=== PATIENT | male | born 1965 | race Caucasian/White ===

== ENCOUNTER 2018-01-09 08:20 | Emergency (ER) | payer OTHER, SELFPAY ==
[2018-01-09] VITALS (10 sets, daily range): BP systolic 82–91; BP diastolic 55–69; PULSE 56–64; RESP 11–29; O2SAT 98–99; BMI 27.3
--- NOTE | 2018-01-09 | DI.RAD.S_ITS ---
PROCEDURE: XR CHEST 1V INDICATIONS: CONFUSION, POSSIBLE STROKE TECHNIQUE: One view of the chest was acquired. COMPARISON: None. FINDINGS: Surgical changes and devices: None. Lungs and pleura: No pleural effusions or pneumothorax. Lungs are difficult to assess due to reduced inspiration, and light film technique. Mediastinum: Mediastinal contours appear normal. Heart size is normal. Bones and chest wall: No suspicious bony lesions. Overlying soft tissues appear unremarkable. IMPRESSION: Light film technique, no pneumonia or aspiration seen. The inspiratory volume is reduced. There may be a slight degree of pulmonary edema superimposed. Dictated by: Robert Day M.D. on 01/09/2018 at 8:43 Approved by: Robert Day M.D. on 01/09/2018 at 8:46
--- NOTE | 2018-01-09 08:23 | DI.CT.S_ITS ---
PROCEDURE: CT HEAD/BRAIN WO CON INDICATIONS: code stroke confusion TECHNIQUE: Noncontrast 4.5 mm thick angled axial sections acquired from the foramen magnum to the vertex, with coronal and sagittal reformats. For radiation dose reduction, the following was used: automated exposure control, adjustment of mA and/or kV according to patient size. COMPARISON: None. FINDINGS: Image quality: Excellent. CSF spaces: Subarachnoid hemorrhage is present in the suprasellar cistern, interpeduncular cistern, ambient cistern and prepontine cistern, sylvian fissures, and the interhemispheric fissure, suspicious for ruptured aneurysm. Ventricles are normal in size and shape. Brain: Small amount of subarachnoid blood within the frontal sulci. No midline shift. No intracranial masses or hemorrhage. Fernández-white matter interface is normal. Skull and face: Calvarium and visualized facial bones are intact, without suspicious lesions. Sinuses: Visualized sinuses and mastoids are clear. IMPRESSION: There is considerable amount of subarachnoid blood within the suprasellar cistern, interpeduncular cistern, ambient cistern and pre-pontine cistern, as well as sylvian fissures and the interhemispheric fissure, highly suspicious for ruptured aneurysm. Less likely, findings could be the result of posttraumatic subarachnoid bleed. The result was discussed with Dr. Kearns in ER on 01/09/2018 at 08:30 hours. Dictated by: Karla Lopez M.D. on 01/09/2018 at 8:31 Approved by: Karla Lopez M.D. on 01/09/2018 at 8:52
--- NOTE | 2018-01-09 08:25 | ED.NEUROSD ---
HPI - Neuro Symptoms/Deficit General Chief Complaint: Neuro Symptoms/Deficit Stated Complaint: Code stroke Time Seen by Provider: 01/09/18 08:24 Source: EMS Mode of arrival: EMS Limitations: altered mental status History of Present Illness HPI Narrative: The patient arrives as a code stroke after a 911 call on behalf of this patient. The last known normal was 3:00 a.m. He resides in [place]. He is here, apparently on a boat he keeps locally. Friends are neighbors contacted 911 after hearing inappropriate laughing into the night. His neighbors checked on him, they opened his boat [place] this morning. He was passed out on the floor, and not responding appropriately. Paramedics report him obeying commands, moving extremities upon command. He would not move facial muscles upon and command. He was aphasic at the time. His called me from [place]. She informed me that he has a history of hypertension. He has a history of CAD with a minor [place] and angioplasty 2 years ago. He has seen locally in [place] for headache about 2 weeks ago. The diagnosis was probable viral syndrome, it took several days for the headache to resolve. There were no obvious neurologic deficits at that time. He does not have a history of headaches. Upon arrival, he awakens, but is aphasic. He does respond to some questioning physically, but not verbally. The patient was taken immediately to CT. A brief exam was performed. Upon return from CT, he is now responding verbally. He is clearly confused, but can add answer several questions. He has no focal motor deficits. Related Data Allergies Allergy/AdvReac Type Severity Reaction Status Date / Time No Known Drug Allergies Allergy Verified 01/09/18 09:05 Review of Systems Review of Systems other (ROS Is limited due to his current medical status. He cannot give me and agrees medical history. His did provide the few details noted in HPI.) [facility] Medical History CAD S/P percutaneous coronary angioplasty (Acute) Hypertension (Acute) Social History additional social history: He lives in [place]. He drinks alcohol socially. Exam Initial Vital Signs Initial Vital Signs: Vital Signs Pulse Rate 62 01/09/18 08:30 Respiratory Rate 29 H 01/09/18 08:30 Blood Pressure 89/67 L 01/09/18 08:30 Pulse Oximetry 98 01/09/18 08:30 Const General: lethargic and other ( Initially aphasic, but responds physically to questions. He can now answer verbally. He is confused.) [facility] Head: normocephalic and atraumatic Ears: external ears normal and TM's normal bilaterally Nose: external nose normal Face and sinus: face symmetric Mouth: oral mucosae normal and moist mucous membranes Teeth and gingiva: dentition normal Throat: posterior oropharynx normal Eyes Alignment and Position: other ( Initially his gaze was sustained to the left. He now has EOMI, PERRLA. He does not seem to have any visual deficits.) EOM: EOM intact bilaterally Neck Neck: normal visual inspection, trachea midline, No lymphadenopathy and No JVD Carotids: no bruits Chest Chest: normal inspection of the chest Resp Effort & Inspection: normal respiratory effort and able to speak in complete sentences Auscultation: clear to auscultation bilaterally, no rales, no rhonchi and no wheezes Cardio Rate: regular rate Rhythm: regular rhythm Heart Sounds: no click, no gallops, no murmurs and no rubs Pulses: normal peripheral pulses GI Inspection: non-distended Palpation: soft, no hepatosplenomegaly, No guarding, No pulsatile mass and No tender Auscultation: normal bowel sounds Back/Spine/Pelvis Back: normal to inspection Skin General: no rashes or lesions noted Neuro General: obtunded and other ( Confused. Initial aphaia has resolved. He obeys some commands, not all. No obvious motor or sensory deficits. He could not perform cerebellar exam.) Extrem General: full ROM, no clubbing, cyanosis or edema and no pedal edema Scores NIH Stroke Scale Level of Conciousness: Not alert, but arousable by minor stim to obey, answer or respond Ask month/age: Answers neither question correctly, aphasic, stuporous, coma Open/close eyes, close hand: Performs one task correctly Best gaze horizontal: Partial gaze palsy, can be overcome by finger tracking, head turning Visual harding: No visual loss Facial palsy: Normal symetrical movement Left arm drift: No drift for full 10 sec Right arm drift: No drift for full 10 sec Left leg drift: Some effort against gravity, cannot maintain, drifts down to bed Right leg drift: Some effort against gravity, cannot maintain, drifts down to bed Limb ataxia: Absent Sensory on face/arms/legs: Normal, no sensory loss Best language: Severe aphasia, not much is understood, fragmented Dysarthria: Severe, unintelligible Extinction or inattention: No abnormality Total NIH Stroke scale score: 13 Course Course Narrative: The patient was quickly recognized to have a subarachnoid hemorrhage. The CT was discussed with the reading radiologist. Transfer has been arranged, the patient will be moved by Alex Shah to [facility] in [place]. The accepting physician is Dr. Yunior Ma. Initial hypertension was tolerated, but he dropped to 80 systolic. He is receiving a fluid bolus. Despite this, he seems to be improving neurologically. Alex is continuing with the normal saline bolus, we are proceeding with the transfer to get him to a Neurosurgical center as soon as possible. Orders Ordered: ED Orders 01/09/18 07:50 Basic Metabolic Panel Stat Complete Blood Count AUTO DIFF Stat Ethanol (ETOH) Stat Partial Thromboplastin Time Stat Prothrombin Time INR Stat 01/09/18 08:23 CT head/brain wo con Stat 01/09/18 08:25 EKG-12 Lead Stat Sodium Chloride (Normal Saline 0.9%) 1,000 mls @ 150 mls/hr IV CONT ROB Last Admin: 01/09/18 09:06 Dose: 150 mls/hr Discontinued Medications Ondansetron HCl (Zofran) 4 mg IV NOW ONE Stop: 01/09/18 09:12 Vital Signs - 8 hr 01/09/18 08:30 Pulse Rate 62 Respiratory Rate 29 H Blood Pressure 89/67 L Pulse Oximetry 98 MDM - Neuro Symptoms/Deficit Lab Data Attestation: I reviewed the patient's lab results. Result diagrams: 01/09/18 07:50 01/09/18 07:50 Lab Results 01/09/18 01/09/18 01/09/18 Range/Units 07:50 07:50 07:50 WBC 11.2 H (4.5-11.0) X10^3/uL RBC 5.13 (4.5-5.9) X10^6/uL Hgb 15.4 (13.5-17.5) g/dL Hct 45.2 (41-53) % MCV 88.0 (80-100) fL MCH 30.0 (26-34) PG MCHC 34.1 (30-36) % RDW 13.7 (11.6-14.8) % Plt Count 224 (150-400) X10^3/uL Neut % (Auto) 69.3 (50-75) % Lymph % (Auto) 22.4 L (25-40) % [place] % (Auto) 4.7 (3-14) % Eos % (Auto) 2.9 (2-4) % Baso % (Auto) 0.7 (0-2) % Neut # (Auto) 7700 H (0224-5635) /uL PT 10.9 (10.1-12.7) SECONDS INR 1.0 (0.9-1.3) APTT 21 L (26.4-36.2) SECONDS Sodium 142 (137-145) mmol/L Potassium 3.7 (3.4-5.1) mmol/L Chloride 106 (98-107) mmol/L Carbon Dioxide 19 L (22-32) mmol/L BUN 14 (9-20) mg/dL Creatinine 0.90 (0.66-1.25) mg/dL Estimated GFR > 60.0 (>60) mL/min BUN/Creatinine Ratio 15.6 (6-22) Glucose 166 H (70-100) mg/dL Calcium 8.9 (8.4-10.2) mg/dL Ethyl Alcohol < 10 mg/dL Point of Care Testing Glucose POC 157 Imaging Data Chest x-ray: Radiologist's impression: Possible mild CHF. CT scan - head: Attestation: I personally reviewed and interpreted this imaging study as follows: Radiologist's impression: [address] [address] [address] Scan Report Signed Patient: Matthew Adler#: [id number] : 1965Acct:[id number] Age/Sex: 52 / MDate of Service: 01/09/18 Loc: ED Accession Number: [id number] Procedure: CT head/brain wo con Ordering Provider: Kenji Lassiter M.D. PROCEDURE: CT HEAD/BRAIN WO CON INDICATIONS: code stroke confusion TECHNIQUE: Noncontrast 4.5 mm thick angled axial sections acquired from the foramen magnum to the vertex, with coronal and sagittal reformats. For radiation dose reduction, the following was used: automated exposure control, adjustment of mA and/or kV according to patient size. COMPARISON: None. FINDINGS: Image quality: Excellent. CSF spaces: Subarachnoid hemorrhage is present in the suprasellar cistern, interpeduncular cistern, ambient cistern and prepontine cistern, sylvian fissures, and the interhemispheric fissure, suspicious for ruptured aneurysm. Ventricles are normal in size and shape. Brain: Small amount of subarachnoid blood within the frontal sulci. No midline shift. No intracranial masses or hemorrhage. Fernández-white matter interface is normal. Skull and face: Calvarium and visualized facial bones are intact, without suspicious lesions. Sinuses: Visualized sinuses and mastoids are clear. IMPRESSION: There is considerable amount of subarachnoid blood within the suprasellar cistern, interpeduncular cistern, ambient cistern and pre-pontine cistern, as well as sylvian fissures and the interhemispheric fissure, highly suspicious for ruptured aneurysm. Less likely, findings could be the result of posttraumatic subarachnoid bleed. The result was discussed with Dr. Lassiter in ER on 01/09/2018 at 08:30 hours. Dictated by: Kalra Lopez M.D. on 01/09/2018 at 8:31 Approved by: Karla Lopez M.D. on 01/09/2018 at 8:52 ECG Data Attestation: I personally reviewed and interpreted this ECG as follows: ( Sinus bradycardia rate [address] T wave changes. No acute ST elevation. No EKG for comparison.) Critical Care Time Critical Care Time: Yes Total Critical Care Time: 40 Attestation: The patient arrived as code stroke. Critical care time includes initial assessment And treatment decisions. Multiple calls the patient's . Discussion with the radiologist. Consultation with the accepting physician at [facility]. Transfer arrangements And repeated reassessment of the patient's medical condition. Discharge Plan Departure Patient Disposition: [facility] Clinical Impression: Subarachnoid hemorrhage
--- NOTE | 2018-01-09 08:32 | ED_ITS ---
HPI - Neuro Symptoms/Deficit General Chief Complaint: Neuro Symptoms/Deficit Stated Complaint: Code stroke Time Seen by Provider: 01/09/18 08:24 Source: EMS Mode of arrival: EMS Limitations: altered mental status History of Present Illness HPI Narrative: The patient arrives as a code stroke after a 911 call on behalf of this patient. The last known normal was 3:00 a.m. He resides in [place]. He is here, apparently on a boat he keeps locally. Friends are neighbors contacted 911 after hearing inappropriate laughing into the night. His neighbors checked on him, they opened his boat [place] this morning. He was passed out on the floor, and not responding appropriately. Paramedics report him obeying commands, moving extremities upon command. He would not move facial muscles upon and command. He was aphasic at the time. His called me from [place]. She informed me that he has a history of hypertension. He has a history of CAD with a minor [place] and angioplasty 2 years ago. He has seen locally in [place] for headache about 2 weeks ago. The diagnosis was probable viral syndrome, it took several days for the headache to resolve. There were no obvious neurologic deficits at that time. He does not have a history of headaches. Upon arrival, he awakens, but is aphasic. He does respond to some questioning physically, but not verbally. The patient was taken immediately to CT. A brief exam was performed. Upon return from CT, he is now responding verbally. He is clearly confused, but can add answer several questions. He has no focal motor deficits. Related Data Allergies Allergy/AdvReac Type Severity Reaction Status Date / Time No Known Drug Allergies Allergy Verified 01/09/18 09:05 Review of Systems Review of Systems other (ROS Is limited due to his current medical status. He cannot give me and agrees medical history. His did provide the few details noted in HPI.) [facility] Medical History CAD S/P percutaneous coronary angioplasty (Acute) Hypertension (Acute) Social History additional social history: He lives in [place]. He drinks alcohol socially. Exam Initial Vital Signs Initial Vital Signs: Vital Signs Pulse Rate 62 01/09/18 08:30 Respiratory Rate 29 H 01/09/18 08:30 Blood Pressure 89/67 L 01/09/18 08:30 Pulse Oximetry 98 01/09/18 08:30 Const General: lethargic and other ( Initially aphasic, but responds physically to questions. He can now answer verbally. He is confused.) [facility] Head: normocephalic and atraumatic Ears: external ears normal and TM's normal bilaterally Nose: external nose normal Face and sinus: face symmetric Mouth: oral mucosae normal and moist mucous membranes Teeth and gingiva: dentition normal Throat: posterior oropharynx normal Eyes Alignment and Position: other ( Initially his gaze was sustained to the left. He now has EOMI, PERRLA. He does not seem to have any visual deficits.) EOM: EOM intact bilaterally Neck Neck: normal visual inspection, trachea midline, No lymphadenopathy and No JVD Carotids: no bruits Chest Chest: normal inspection of the chest Resp Effort & Inspection: normal respiratory effort and able to speak in complete sentences Auscultation: clear to auscultation bilaterally, no rales, no rhonchi and no wheezes Cardio Rate: regular rate Rhythm: regular rhythm Heart Sounds: no click, no gallops, no murmurs and no rubs Pulses: normal peripheral pulses GI Inspection: non-distended Palpation: soft, no hepatosplenomegaly, No guarding, No pulsatile mass and No tender Auscultation: normal bowel sounds Back/Spine/Pelvis Back: normal to inspection Skin General: no rashes or lesions noted Neuro General: obtunded and other ( Confused. Initial aphaia has resolved. He obeys some commands, not all. No obvious motor or sensory deficits. He could not perform cerebellar exam.) Extrem General: full ROM, no clubbing, cyanosis or edema and no pedal edema Scores NIH Stroke Scale Level of Conciousness: Not alert, but arousable by minor stim to obey, answer or respond Ask month/age: Answers neither question correctly, aphasic, stuporous, coma Open/close eyes, close hand: Performs one task correctly Best gaze horizontal: Partial gaze palsy, can be overcome by finger tracking, head turning Visual harding: No visual loss Facial palsy: Normal symetrical movement Left arm drift: No drift for full 10 sec Right arm drift: No drift for full 10 sec Left leg drift: Some effort against gravity, cannot maintain, drifts down to bed Right leg drift: Some effort against gravity, cannot maintain, drifts down to bed Limb ataxia: Absent Sensory on face/arms/legs: Normal, no sensory loss Best language: Severe aphasia, not much is understood, fragmented Dysarthria: Severe, unintelligible Extinction or inattention: No abnormality Total NIH Stroke scale score: 13 Course Course Narrative: The patient was quickly recognized to have a subarachnoid hemorrhage. The CT was discussed with the reading radiologist. Transfer has been arranged, the patient will be moved by Alex Shah to [facility] in [place]. The accepting physician is Dr. Yunior Ma. Initial hypertension was tolerated, but he dropped to 80 systolic. He is receiving a fluid bolus. Despite this, he seems to be improving neurologically. Alex is continuing with the normal saline bolus, we are proceeding with the transfer to get him to a Neurosurgical center as soon as possible. Orders Ordered: ED Orders 01/09/18 07:50 Basic Metabolic Panel Stat Complete Blood Count AUTO DIFF Stat Ethanol (ETOH) Stat Partial Thromboplastin Time Stat Prothrombin Time INR Stat 01/09/18 08:23 CT head/brain wo con Stat 01/09/18 08:25 EKG-12 Lead Stat Sodium Chloride (Normal Saline 0.9%) 1,000 mls @ 150 mls/hr IV CONT ROB Last Admin: 01/09/18 09:06 Dose: 150 mls/hr Discontinued Medications Ondansetron HCl (Zofran) 4 mg IV NOW ONE Stop: 01/09/18 09:12 Vital Signs - 8 hr 01/09/18 08:30 Pulse Rate 62 Respiratory Rate 29 H Blood Pressure 89/67 L Pulse Oximetry 98 MDM - Neuro Symptoms/Deficit Lab Data Attestation: I reviewed the patient's lab results. Result diagrams: 01/09/18 07:50 01/09/18 07:50 Lab Results 01/09/18 01/09/18 01/09/18 Range/Units 07:50 07:50 07:50 WBC 11.2 H (4.5-11.0) X10^3/uL RBC 5.13 (4.5-5.9) X10^6/uL Hgb 15.4 (13.5-17.5) g/dL Hct 45.2 (41-53) % MCV 88.0 (80-100) fL MCH 30.0 (26-34) PG MCHC 34.1 (30-36) % RDW 13.7 (11.6-14.8) % Plt Count 224 (150-400) X10^3/uL Neut % (Auto) 69.3 (50-75) % Lymph % (Auto) 22.4 L (25-40) % [place] % (Auto) 4.7 (3-14) % Eos % (Auto) 2.9 (2-4) % Baso % (Auto) 0.7 (0-2) % Neut # (Auto) 7700 H (8785-7918) /uL PT 10.9 (10.1-12.7) SECONDS INR 1.0 (0.9-1.3) APTT 21 L (26.4-36.2) SECONDS Sodium 142 (137-145) mmol/L Potassium 3.7 (3.4-5.1) mmol/L Chloride 106 (98-107) mmol/L Carbon Dioxide 19 L (22-32) mmol/L BUN 14 (9-20) mg/dL Creatinine 0.90 (0.66-1.25) mg/dL Estimated GFR > 60.0 (>60) mL/min BUN/Creatinine Ratio 15.6 (6-22) Glucose 166 H (70-100) mg/dL Calcium 8.9 (8.4-10.2) mg/dL Ethyl Alcohol < 10 mg/dL Point of Care Testing Glucose POC 157 Imaging Data Chest x-ray: Radiologist's impression: Possible mild CHF. CT scan - head: Attestation: I personally reviewed and interpreted this imaging study as follows: Radiologist's impression: [address] [address] [address] Scan Report Signed Patient: Matthew Adler#: [id number] : 1965Acct:[id number] Age/Sex: 52 / MDate of Service: 01/09/18 Loc: ED Accession Number: [id number] Procedure: CT head/brain wo con Ordering Provider: Kenji Lassiter M.D. PROCEDURE: CT HEAD/BRAIN WO CON INDICATIONS: code stroke confusion TECHNIQUE: Noncontrast 4.5 mm thick angled axial sections acquired from the foramen magnum to the vertex, with coronal and sagittal reformats. For radiation dose reduction, the following was used: automated exposure control, adjustment of mA and/or kV according to patient size. COMPARISON: None. FINDINGS: Image quality: Excellent. CSF spaces: Subarachnoid hemorrhage is present in the suprasellar cistern, interpeduncular cistern, ambient cistern and prepontine cistern, sylvian fissures, and the interhemispheric fissure, suspicious for ruptured aneurysm. Ventricles are normal in size and shape. Brain: Small amount of subarachnoid blood within the frontal sulci. No midline shift. No intracranial masses or hemorrhage. Fernández-white matter interface is normal. Skull and face: Calvarium and visualized facial bones are intact, without suspicious lesions. Sinuses: Visualized sinuses and mastoids are clear. IMPRESSION: There is considerable amount of subarachnoid blood within the suprasellar cistern, interpeduncular cistern, ambient cistern and pre-pontine cistern, as well as sylvian fissures and the interhemispheric fissure, highly suspicious for ruptured aneurysm. Less likely, findings could be the result of posttraumatic subarachnoid bleed. The result was discussed with Dr. Lassiter in ER on 01/09/2018 at 08:30 hours. Dictated by: Karla Lopez M.D. on 01/09/2018 at 8:31 Approved by: Karla Lopez M.D. on 01/09/2018 at 8:52 ECG Data Attestation: I personally reviewed and interpreted this ECG as follows: ( Sinus bradycardia rate [address] T wave changes. No acute ST elevation. No EKG for comparison.) Critical Care Time Critical Care Time: Yes Total Critical Care Time: 40 Attestation: The patient arrived as code stroke. Critical care time includes initial assessment And treatment decisions. Multiple calls the patient's . Discussion with the radiologist. Consultation with the accepting physician at [facility]. Transfer arrangements And repeated reassessment of the patient's medical condition. Discharge Plan Departure Patient Disposition: [facility] Clinical Impression: Subarachnoid hemorrhage
[2018-01-09 08:38] LABS: Add Manual Diff / Slide Review NO; Basophils Percent Auto 0.7 % (0-2); Eosinophils Percent Auto 2.9 % (2-4); Hematocrit 45.2 % (41-53); Hemoglobin 15.4 g/dL (13.5-17.5); Lymphocytes Percent Auto 22.4 % (25-40); Mean Corpuscular HGB Conc 34.1 % (30-36); Monocytes Percent Auto 4.7 % (3-14); Neutrophils Absolute Auto 7700 /uL (3000-5900); Neutrophils Percent Auto 69.3 % (50-75); Platelet Count 224 X10^3/uL (150-400); Red Blood Cell Count 5.13 X10^6/uL (4.5-5.9); Red Cell Distribution Width 13.7 % (11.6-14.8); White Blood Cell Count 11.2 X10^3/uL (4.5-11.0)
[2018-01-09 08:45] LABS: Prothrombin Time 10.9 SECONDS (10.1-12.7)
[2018-01-09 08:48] LABS: PTT Partial Thromboplastin Tim 21 SECONDS (26.4-36.2)
[2018-01-09 08:53] LABS: BUN Creatinine Ratio 15.6 (6-22); Blood Urea Nitrogen 14 mg/dL (9-20); Calcium 8.9 mg/dL (8.4-10.2); Carbon Dioxide 19 mmol/L (22-32); Chloride 106 mmol/L (98-107); Estimated Glomerular Filt Rate > 60.0 mL/min (>60); Ethanol (ETOH) < 10 mg/dL; Glucose 166 mg/dL (70-100); HEMOLYSIS 47 (0-50); Potassium 3.7 mmol/L (3.4-5.1); Sodium 142 mmol/L (137-145)
[2018-01-09] MEDS: SODIUM CHLORIDE 0.9% 1,000 ML 150 ML IV (09:06)
--- NOTE | 2018-01-09 09:06 | PC.NURSE ---
Per VO, Bolus 500cc for bp under 82 systolic. Pt with systolic pressure of 77 and bolus is started. Pt with nausea and given 4mg zofran IVP.
[2018-01-09] MEDS: ONDANSETRON 4 MG/2 ML INJ IV (09:14)
== END 2018-01-09 09:30 | disposition short-term general hospital (02) ==
LOC: ED 09:54
PROVIDERS: Emergency Provider Emergency Medicine
DX: I60.9 Nontraumatic subarachnoid hemorrhage, unspecified (principal)
CPT/HCPCS: 36591; 70450; 71045; 80048; 80320; 82962; 85025; 85610; 85730; 93005; 93041; 96374; 99285; 99291; J2405